=== PATIENT | female | born 1970 | race Caucasian/White ===

== ENCOUNTER 2017-11-28 20:56 | Emergency (ER) | payer BC ==
--- NOTE | 2017-11-28 21:17 | EDM.PDOC ---
ED HPI GENERAL MEDICAL PROBLEM - General Stated Complaint: RT ARM POSS BLOOD CLOT Time Seen by Provider: 11/28/17 20:56 Source of Information: Reports: Patient, Family History Limitations: Reports: No Limitations - History of Present Illness INITIAL COMMENTS - FREE TEXT/NARRATIVE: 47 y.o.w.f -very nervous- came to the ed with her family after she bumped her right lat hand against an objet, felt some swelling at her hand which traveled up her right arm into her axilla. All symptoms have resolve but she feels mild discomfort at her right upper arm muscle. She has FROM, no swelling, no discoloration. nl peripheral pulse, her extremities are warm, Nl body temp. She says her family has DVT and on mcconnell. No N/V/D or any other acute med. issues. BP 155/106 RR 16 PULSE OX 100% Temp 36.6 Pulse 61 Onset Date: 11/28/17 Onset Time: 17:00 Duration: Hour(s): Location: Reports: Upper Extremity, Right Quality: Reports: Dull Severity: Mild Improves with: Reports: Rest Worsens with: Reports: Movement Context: Reports: Trauma Associated Symptoms: Reports: Other (right arm pain) - Related Data Allergies Allergy/AdvReac Type Severity Reaction Status Date / Time No Known Allergies Allergy Verified 11/28/17 22:20 Home Meds: Home Meds SUMAtriptan Succinate [Imitrex] 100 mg PO ASDIRECTED PRN 11/28/17 [History] Thyroid,Pork [[employer] Thyroid] 1 tab PO DAILY 11/28/17 [History] Review of Systems - Review of Systems Review Of Systems: See Below Constitutional: Reports: No Symptoms Eyes: Reports: No Symptoms Ears: Reports: No Symptoms Nose: Reports: No Symptoms Mouth/Throat: Reports: No Symptoms Respiratory: Reports: No Symptoms Cardiovascular: Reports: No Symptoms GI/Abdominal: Reports: No Symptoms Genitourinary: Reports: No Symptoms Musculoskeletal: Reports: No Symptoms Skin: Reports: No Symptoms Neurological: Reports: No Symptoms Psychiatric: Reports: No Symptoms ED EXAM, GENERAL - Physical Exam Exam: See Below Exam Limited By: No Limitations General Appearance: Alert, WD/WN, No Apparent Distress Eye Exam: Bilateral Eye: Normal Inspection Ears: Normal External Exam Ear Exam: Bilateral Ear: Auricle Normal Nose: Normal Inspection Throat/Mouth: Normal Inspection, Normal Lips, Normal Voice, No Airway Compromise Head: Atraumatic, Normocephalic Neck: Normal Inspection, Supple, Full Range of Motion Respiratory/Chest: No Respiratory Distress, No Accessory Muscle Use Cardiovascular: Normal Peripheral Pulses, Regular Rate, Rhythm Peripheral Pulses: 2+: Brachial (R) GI/Abdominal: Soft, Non-Tender (Female) Exam: Deferred Rectal (Female) Exam: Deferred Back Exam: Normal Inspection Extremities: Normal Inspection, Normal Range of Motion, No Pedal Edema, Normal Capillary Refill, Other (dyscomfort right upper extremity) Neurological: Alert, Oriented, CN II-XII Intact, Normal Cognition, Normal Gait, No Motor/Sensory Deficits Psychiatric: Normal Mood, Anxious (nervous) Skin Exam: Warm, Dry, Intact, Normal Color, No Rash Lymphatic: No Adenopathy Course - Vital Signs Text/Narrative:: 47 y.o.w.f -very nervous- came to the ed with her family after she bumped her right lat hand against an objet, felt some swelling at her hand which traveled up her right arm into her axilla. All symptoms have resolve but she feels mild discomfort at her right upper arm muscle. She has FROM, no swelling, no discoloration. nl peripheral pulse, her extremities are warm, Nl body temp. She says her family has DVT and on mcconnell. No N/V/D or any other acute med. issues. BP 155/106 RR 16 PULSE OX 100% Temp 36.6 Pulse 61 PE: 47 y.o w f - very anxious-c/o right upper arm discomfort Imaging: US right upper extremity was neg for DVT Labs: Refused. Impression: Muscular skeletal pain right arm Tx: Refused Recheck: Pt's SBP was still 175. Pt stated her BP was yesterday 130/70. Her SBP was never above 140. She was not symptomatic. Plan: D/C with instructions Last Recorded V/S: Last Vital Signs Temp 36.8 C 11/28/17 21:40 Pulse 65 11/28/17 21:40 Resp 16 11/28/17 21:40 BP 171/98 H 11/28/17 22:05 Pulse Ox 100 11/28/17 21:40 - Orders/Labs/Meds Orders: Active Orders 24 hr Category Date Time Status VL Duplex Upr Ext Veins Ltd Rt [US] Stat Exams 11/28/17 21:12 Taken Departure - Departure Time of Disposition: 21:57 Disposition: Home, Self-Care 01 Condition: Good Clinical Impression: Situational hypertension Arm pain, musculoskeletal Qualifiers: Laterality: right Qualified Code(s): M79.601 - Pain in right arm - Discharge Information Referrals: Sherry Alford, [employer] [Primary Care Provider] - Additional Instructions: Please take tylenol for pain, please f/u with your PMD, Please come back to the ED if your symptoms get worse acutely. Please check your BP twice daily for next 3 days. - My Orders Last 24 Hours: My Active Orders 11/28/17 21:12 VL Duplex Upr Ext Veins Ltd Rt [US] Stat - Assessment/Plan Last 24 Hours: My Active Orders 11/28/17 21:12 VL Duplex Upr Ext Veins Ltd Rt [US] Stat
--- NOTE | 2017-11-29 11:09 | US ---
INDICATION: Swelling of right arm, pain near axilla - upper arm medially. DUPLEX ULTRASOUND RIGHT UPPER EXTREMITY VEINS: Utilizing 2-D real time, duplex Doppler spectral analysis, and color flow imaging, examination of the right upper extremity veins, including subclavian, axillary, brachial, and basilic, revealed no evidence of deep venous thrombosis with compressibility and normal color flow. IMPRESSION: No evidence of deep venous thrombosis right upper extremity. MTDD
== END 2017-11-28 22:20 | disposition home or self-care (01) ==
LOC: FB.ED 20:56
DX: M79.601 Pain in right arm (principal); R03.0 Elevated blood-pressure reading, without diagnosis of hypertension
CPT/HCPCS: 93971-RT; 99283